=== PATIENT | male | born 1960 | race Caucasian/White ===

== ENCOUNTER → 2025-08-22 10:56 | Outpatient (CLI) | payer MEDICARE, SELFPAY ==
--- NOTE | 2025-08-22 10:58 | DI.RAD.S_ITS ---
PROCEDURE: XR LUMBAR SPINE MIN 4V INDICATIONS: listhesisap,lat, flex-ex only TECHNIQUE: 5 views of the lumbar spine were acquired, including bilateral oblique views. COMPARISON: [facility], MR, MR LUMBAR SPINE WITHOUT CONTRAST, 06/22/2025, 18:02. FINDINGS: Bones: 5 nonrib-bearing vertebrae are present. Grade 1 anterolisthesis of L4 on L5. Grade 1 retrolisthesis of L2 on L3. Moderate multilevel disc height loss, facet joint arthropathy, hypertrophy, and trace anterior endplate osteophytes. No vertebral body compression fractures. No suspicious bony lesions. Soft tissues: Trace aortic calcification. Overlying bowel gas pattern is normal. No suspicious soft tissue calcifications. Oblique images: No pars defects. IMPRESSION: Grade 1 retrolisthesis of L2 on L3. Grade 1 anterolisthesis of L4 on L5. Dictated by: Princess DE ANDA Interpreted: Adam Brody MD on 08/22/2025 at 15:18 Transcribed by: DANISH on 08/22/2025 at 15:20 Approved by: Adam Brody M.D. on 08/22/2025 at 17:17
== END ==
PROVIDERS: PCP Nurse Practitioner Family; Referring Provider Nurse Practitioner Family; Visit Provider Physical Medicine & Rehabilitation
DX: M43.16 Spondylolisthesis, lumbar region (principal); M47.816 Spondylosis without myelopathy or radiculopathy, lumbar region
CPT/HCPCS: 72110

== ENCOUNTER → 2025-09-11 10:03 | Outpatient (CLI) | payer SELFPAY ==
--- NOTE | 2025-09-11 10:07 | DI.RAD.S_ITS ---
PROCEDURE: XR LUMBAR SPINE MIN 5V INDICATIONS: back pain TECHNIQUE: 5 views of the lumbar spine acquired, including flexion and extension views. COMPARISON: [facility], , XR LUMBAR SPINE MIN 4V, 08/22/2025, 11:04. FINDINGS: [id number] degenerative changes throughout the lumbar spine with disc space narrowing and osteophytes, facet osseous hypertrophic changes most notably L4-5 and L5-S1. Mild vascular calcifications aorta and iliac vessels. Mild 3 mm anterolisthesis L3 on L4 on flexion image but not on neutral or extension. Pattern of constipation incidentally noted No radiographic evidence of fracture. Vertebral body heights within normal limits. IMPRESSION: 3 mm anterolisthesis L3 on L4 on flexion. Degenerative changes. If symptoms persist or worsen, or there is high clinical suspicion of lumbar abnormality, MRI could be performed. Dictated by: Huy Garzon M.D. on 09/12/2025 at 13:59 Approved by: Huy Garzon M.D. on 09/12/2025 at 14:07
== END ==
LOC: RAD 10:04
PROVIDERS: PCP Nurse Practitioner Family; Referring Provider Nurse Practitioner Family; Visit Provider Physical Medicine & Rehabilitation
DX: M43.16 Spondylolisthesis, lumbar region (principal); M47.26 Other spondylosis with radiculopathy, lumbar region; M47.27 Other spondylosis with radiculopathy, lumbosacral region; I70.0 Atherosclerosis of aorta
CPT/HCPCS: 72110

== ENCOUNTER 2025-09-20 07:50 | Outpatient (CLI) | payer MEDICARE, SELFPAY ==
[2025-09-20 08:30] VITALS: BP 129/86; PULSE 72; RESP 16; TEMP 37.1; O2SAT 98
[2025-09-20 09:02] VITALS: BP 130/79; PULSE 73; RESP 17; O2SAT 14
[2025-09-20] MEDS: LIDOCAINE 1% (PF) 5 ML INJ (09:04)
[2025-09-20 09:07] VITALS: BP 122/79; PULSE 71; RESP 16; O2SAT 100
[2025-09-20 09:14] VITALS: BP 145/83; PULSE 68; RESP 16; O2SAT 98
--- NOTE | 2025-09-20 13:01 | P.PCN_ITS ---
Date/Time/Diagnoses Date of procedure: 09/20/25 Time of procedure: 08:30 Pre-procedure diagnosis: Lumbosacral radiculopathy, lumbar stenosis Post-procedure diagnosis: same Procedure Notes Procedure: Interlaminar epidural steroid injection L5-S1 Indications: Lumbosacral radiculopathy, lumbar stenosis Physician: Rhett Voss Total sedation minutes: 0 Complications: none Procedure in detail & Post-procedure care: Patient is here for the planned procedure today as noted. No significant change since the last office visit. For additional clinical scenario please see those office notes. Focused exam: Vital signs reviewed as charted on intake. Gen: Well developed. No acute distress. CV: RRR, no M/R/G Chest: Non-labored breathing, CTAB. Psych: Alert and well-oriented. Mood/Affect: normal. Patient suitable for the planned procedure today: Yes === The following procedure was performed in the office today: Lumbar Epidural Steroid Injection with fluoroscopic guidance - Interlaminar approach ([id number]) Levels Treated: [L5-S1] Approach: interlaminar Soft tissue: [1% lidocaine 2 mL] Test dose: [1% lidocaine 1 mL] Injectate: 0.75 mL of Depo-Medrol (80mg/mL) in 1.25 mL 1% lidocaine and 1 mL normal saline Fluoroscopy Agent: Isovue 300-M 1.5 mL Notes: Right paramedian approach. 3.5 in 20 gauge Touhy needle utilized and adequate. Preprocedure pain 4/10, postprocedure pain 0/10. We briefly discussed his updated lumbar plain films and will discuss in more detail at follow-up. These did show some instability at the L3-4 listhesis. We will see how he does with the injection prior to determining next steps. Procedure: After discussing the risks, benefits, and alternatives to the procedure, the patient expressed understanding and wished to proceed. The risks include but are not limited to infection, allergic reaction, nerve damage, stroke, paralysis, epidural hematoma, syncope, headache, respiratory or cardiac arrest, spinal cord injury, and scar formation. Informed consent was obtained and all patient questions were answered. The patient was brought to the procedure suite and placed in the prone position. A pre-procedural pause was conducted to verify: correct patient identity, procedure to be performed and as applicable, correct side and site, correct patient position, and any special requirements. Using a paramedian approach from the side noted above, the region overlying the target was localized under fluoroscopic visualization and the soft tissues overlying this structure were infiltrated with the anesthetic listed above. With fluoroscopic guidance, a #20 gauge Tuohy needle (unless otherwise noted) was inserted into the epidural space using a paramedian approach. The epidural space was localized utilizing intermittent multiplanar fluoroscopic guidance and loss of resistance technique. After negative aspiration, the contrast noted above was injected into the epidural space and the flow of contrast was observed, confirming epidural spread without evidence of intravascular or int rathecal spread. Multi-planar radiographs were obtained for documentation purposes. A test dose of lidocaine was injected into the above noted epidural space, and the patient was observed for 30-60 seconds. No sensory deficits were reported and normal lower extremity motor function was noted. Subsequently, the injectate as noted above was administered into the level noted above. The patient tolerated the procedure well and was discharged after an appropriate period of observation. If there are any complications, the patient was instructed to call us. The patient is to follow-up with the requesting provider in 2-3 weeks. This note was compiled using voice recognition software and therefore may contain typos. Please contact the author with any questions or concerns.
== END 2025-09-20 09:20 | disposition home or self-care (01) ==
LOC: RAD 07:51
PROVIDERS: PCP Nurse Practitioner Family; Referring Provider Nurse Practitioner Family; Visit Provider Physical Medicine & Rehabilitation
DX: M54.17 Radiculopathy, lumbosacral region (principal); M48.07 Spinal stenosis, lumbosacral region
CPT/HCPCS: 62323; J1010